=== PATIENT | female | born 1970 | race African-American/Black ===

== ENCOUNTER 2025-02-23 06:27 | Day surgery (SDC) | payer BC, SELFPAY | END 2025-02-23 09:46 | disposition home or self-care (01) | LOC: GI 06:27 | PROVIDERS: ATTENDING PHYSICIAN Internal Medicine Gastroenterology; FAMILY PHYSICIAN Family Medicine Adult Medicine | DX: Z12.11 Encounter for screening for malignant neoplasm of colon (principal); K57.30 Diverticulosis of large intestine without perforation or abscess without bleeding | CPT/HCPCS: G0121 ==